=== PATIENT | female | born 1975 | race Caucasian/White ===

== ENCOUNTER → 2016-12-01 | Outpatient (CLI) | payer OTHER ==
[~2016-12-01] MED LIST: ADVAIR 2501 DISK W/D PO; ALBUTEROL MININEB; ALBUTEROL17 GM; ALBUTEROL17 GM INH; ALBUTEROL17 GM NEB; ALDACTONE PO; ALLEGRA PO; BENTYL10 M1; CIPRO PO; CLARINEX-D1 TAB.SR . PO; DESYREL50 MG; DULERA 100 MCG/13 GM; EC-NAPROSYN500 MG; EFFEXOR75 MG; FLEXERIL10 MG PO; FLONASE 0.05% N16 G1; LIDODERM30 EA TOP; LIORESAL10 MG; LIPITOR PO; METFORMIN HCL1000 M1; METFORMIN PO; NASACORT AQ16.5 GM; NEURONTIN; NEXIUM; PHENERGAN25 MG; PREDNISONE PO; SINGULAIR PO; SINGULAIR4 MG
--- NOTE | ~2016-12-01 | NM19 ---
[facility] A Service of [facility] & [facility] RADIOLOGY TEXT RESULTS PATIENT: MYRON BARNES LOCATION: [facility] : 79 UNIT #: [id number] AGE: [address]: Paul Llanos MD SEX: F ORDER DR: [id number] [facility] [address] [place], [place] [address] [id number] O MR#: [id number] Acc #: [id number] NAME: MYRON BARNES. : 1975 SEX: F STUDY DATE/TIME: 12/01/2016 10:11 UNIT: [facility] ROOM: STUDY DESCRIPTION: CT Gastric Emptying Study Attending Physician: Paul Llanos M.D. Referring Physician: Paul Llanos M.D. Ordering Physician: Paul Llanos M.D. Primary Care Physician: Nehal Vincent M.D. MEDICAL IMAGING REPORT This report is preliminary unless electronic signature is present EXAM Gastric emptying study. INDICATIONS Nausea and vomiting, worsening over the past 2 years. PROCEDURE Patient ingested 550 mcCi technetium-labeled sulfur colloid mixed in eggs water. Imaging of the stomach performed anterior and posterior projections for 4 hours. COMPARISON None FINDINGS Stomach 0% empty at 0 minutes, 35% empty at 60 minutes, 75% empty at 120 minutes, and 99% empty at 240 minutes. IMPRESSION Normal gastric emptying. Dictated by... Hima Ag M.D. THIS IS AN ELECTRONICALLY VERIFIED REPORT Hima Ag M.D. at 12/01/2016 10:23 PM Winter TD: 12/01/2016 17:45 JOB #: [id number] MEDICAL IMAGING REPORT Page 1 of 1 COPY
== END | disposition home or self-care (01) ==
LOC: CNUC 09:23
DX: K21.9 Gastro-esophageal reflux disease without esophagitis (principal); K59.1 Functional diarrhea; E11.9 Type 2 diabetes mellitus without complications; E78.5 Hyperlipidemia, unspecified; Z88.0 Allergy status to penicillin; Z88.2 Allergy status to sulfonamides; Z88.8 Allergy status to other drugs, medicaments and biological substances
CPT/HCPCS: 78264; A9541